=== PATIENT | female | born 1965 | race Caucasian/White ===

== ENCOUNTER 2017-10-08 07:36 | Emergency (ER) | payer OTHER ==
[~2017-10-08 07:36] MED LIST: ASPI-630 PO; BENZ1TAB5 PO; CLON1TAB3 PO; FLUO10TA PO; GABA-586 PO; NEBI5TAB2 PO; PRAV80TA2 PO; TAPE75TA3 PO
[2017-10-08 07:40] VITALS: BP 143/69
[2017-10-08] MEDS ORDERED: IPRA15SP NS (08:02)
[2017-10-08] MEDS ORDERED: FLUT12AE IH (08:02)
--- NOTE | 2017-10-08 08:02 | PHYS DOC ---
Past History Past Medical History: Anxiety, Bipolar, CAD, COPD Past Surgical History: Cholecystectomy Alcohol Use: None Drug Use: None Adult General Chief Complaint Chief Complaint: COUGH HPI HPI Patient is a 51 year old F who presents with cough and nasal congestion over the past week. Brenna feels that her symptoms are worse with activity and improved with rest. She has no other associated symptoms. She has no other exacerbating or alleviating factors. She does have a history of emphysema and uses albuterol only. Review of Systems Review of Systems Constitutional: Denies fever or chills [] Eyes: Denies change in visual acuity, redness, or eye pain [] HENT: Negative except history of present illness Respiratory: Negative except history of present illness Cardiovascular: No additional information not addressed in HPI [] GI: Denies abdominal pain, nausea, vomiting, bloody stools or diarrhea [] : Denies dysuria or hematuria [] Musculoskeletal: Denies back pain or joint pain [] Integument: Denies rash or skin lesions [] Neurologic: Denies headache, focal weakness or sensory changes [] Endocrine: Denies polyuria or polydipsia [] All other systems were reviewed and found to be within normal limits, except as documented in this note. Family History Family History No pertinent family medical history was reported Current Medications Current Medications Current medications were reviewed Allergies Allergies Allergies Coded Allergies Type Severity Reaction Last Updated Verified quetiapine Allergy Severe 04/15/16 Yes oxcarbazepine Allergy Intermediate 04/15/16 Yes Physical Exam Physical Exam Constitutional: Well developed, well nourished, no acute distress, non-toxic appearance. [] HENT: Normocephalic, atraumatic, mild nasal mucosa erythema with mild mucous Eyes: PERRLA, EOMI, conjunctiva normal, no discharge. [] Neck: Normal range of motion, no tenderness, supple, no stridor. [] Cardiovascular:Heart rate regular rhythm, Lungs & Thorax: Bilateral breath sounds clear to auscultation []mild coarse breath sounds noted with minimal wheezing Abdomen: Bowel sounds normal, soft, no tenderness, no masses, no pulsatile masses. [] Skin: Warm, dry, no erythema, no rash. [] Back: No tenderness, no CVA tenderness. [] Extremities: No tenderness, no cyanosis, no clubbing, ROM intact, no edema. [] Neurologic: Alert and oriented X 3, normal motor function, normal sensory function, no focal deficits noted. [] Psychologic: Affect normal, judgement normal, mood normal. [] Current Patient Data Vital Signs Normal vital signs please review nursing documentation for specifics EKG EKG [] Radiology/Procedures Radiology/Procedures Imaging was declined Course & Med Decision Making Course & Med Decision Making Pertinent Labs and Imaging studies reviewed. (See chart for details) [] Dragon Disclaimer Dragon Disclaimer This electronic medical record was generated, in whole or in part, using a voice recognition dictation system. Departure Departure: Impression: Primary Impression: Upper respiratory infection Additional Impression: Bronchitis Disposition: HOME, SELF-CARE Condition: STABLE Referrals: JAYMIE FAIRCHILD APRN (PCP) Patient Instructions: Acute Bronchitis Additional Instructions: Brenna was seen in the emergency department for cough and nasal congestion. No emergency medical condition was found on history or physical exam. Her symptoms are most consistent with a viral upper respiratory infection and bronchitis. She is advised to use nasal saline rinses regularly. She is also given prescriptions for nasal spray and inhaled steroid. She is advised to follow-up with her primary care doctor in the next 3-5 days for further management. Scripts Ipratropium [place] (IPRATROPIUM BROMIDE) 15 Ml [place] 15 ML NS TID for 7 Days, SPRAY Prov: ALEX STAFFORD MD 10/08/17 Fluticasone Propionate (FLOVENT 110MCG HFA) 12 Gm Aer.w.adap 2 PUFF IH BID for 7 Days, #1 INHALER 2 Refills Prov: ALEX STAFFORD MD 10/08/17 Problem Qualifiers Primary Impression: Upper respiratory infection URI type: unspecified URI Qualified Codes: J06.9 - Acute upper respiratory infection, unspecified ALEX STAFFORD MD Oct 08, 2017 08:02
== END 2017-10-08 08:10 | disposition home or self-care (01) ==
LOC: ER 07:36
DX: J06.9 Acute upper respiratory infection, unspecified (principal); J40 Bronchitis, not specified as acute or chronic; I25.10 Atherosclerotic heart disease of native coronary artery without angina pectoris; J44.9 Chronic obstructive pulmonary disease, unspecified; Z88.8 Allergy status to other drugs, medicaments and biological substances
CPT/HCPCS: 99283

== ENCOUNTER → 2018-08-07 | Outpatient (CLI) | payer OTHER ==
[~2018-08-07] MED LIST changes: -CLON1TAB3 PO; +CLON1TAB4 PO; +FLUT12AE IH; +IPRA15SP NS
[2018-08-07 08:26] LABS: ALBUMIN 3.6 g/dL (3.4-5.0); ALBUMIN/GLOBULIN RATIO 0.8 (1.0-1.7); CALCIUM 9.2 mg/dL (8.5-10.1); CREATININE 0.9 mg/dL (0.6-1.0); GFR 66.3; POTASSIUM 4.4 mmol/L (3.5-5.1); TOTAL BILIRUBIN 0.3 mg/dL (0.2-1.0)
== END | disposition home or self-care (01) ==
LOC: LAB 07:42
PROVIDERS: ATTEND Nurse Practitioner
DX: E78.49 Other hyperlipidemia (principal)
CPT/HCPCS: 36415; 80053; 80061

== ENCOUNTER → 2018-11-21 | Outpatient (CLI) | payer OTHER ==
[~2018-11-21] MED LIST changes: +CLON1TAB11 PO; -CLON1TAB4 PO
[2018-11-21 08:55] LABS: ALBUMIN 3.7 g/dL (3.4-5.0); CALCIUM 8.9 mg/dL (8.5-10.1); CREATININE 0.9 mg/dL (0.6-1.0); POTASSIUM 3.8 mmol/L (3.5-5.1); TOTAL BILIRUBIN 0.3 mg/dL (0.2-1.0); TOTAL PROTEIN 7.4 g/dL (6.4-8.2)
== END | disposition home or self-care (01) ==
LOC: LAB 07:30
PROVIDERS: ATTEND Nurse Practitioner
DX: E78.5 Hyperlipidemia, unspecified (principal)
CPT/HCPCS: 36415; 80053; 80061

== ENCOUNTER → 2019-04-20 | Outpatient (CLI) | payer OTHER ==
[2019-04-20 09:30] LABS: BASO % 1 % (0-3); EOS # 0.1 x10^3/uL (0.0-0.7); EOS % 2 % (0-3); HEMATOCRIT 41.6 % (36.0-47.0); HEMOGLOBIN 13.9 g/dL (12.0-15.5); LYMPH # 3.2 x10^3/uL (1.0-4.8); LYMPH % 38 % (24-48); MEAN CORPUSCULAR HEMOGLOBIN 34 pg (25-35); MEAN CORPUSCULAR HGB CONC 34 g/dL (31-37); MEAN CORPUSCULAR VOLUME 100 fL (79-100); MONO # 0.6 x10^3/uL (0.0-1.1); MONO % 7 % (0-9); NEUT # 4.5 x10^3uL (1.8-7.7); NEUT % 53 % (31-73); PLATELET COUNT 238 x10^3/uL (140-400); RED BLOOD COUNT 4.16 x10^6/uL (3.50-5.40); RED CELL DISTRIBUTION WIDTH 13.9 % (11.5-14.5); WHITE BLOOD COUNT 8.5 x10^3/uL (4.0-11.0)
[2019-04-20 09:48] LABS: ALBUMIN 3.7 g/dL (3.4-5.0); ALK PHOS 87 U/L (46-116); ALT (SGPT) 31 U/L (14-59); ANION GAP 9 (6-14); AST (SGOT) 22 U/L (15-37); BLOOD UREA NITROGEN 6 mg/dL (7-20); BUN/CREATININE RATIO 8 (6-20); CALCIUM 9.3 mg/dL (8.5-10.1); CARBON DIOXIDE 27 mmol/L (21-32); CHLORIDE 104 mmol/L (98-107); CREATININE 0.8 mg/dL (0.6-1.0); GFR 75.6; GLUCOSE 98 mg/dL (70-99); POTASSIUM 4.4 mmol/L (3.5-5.1); SODIUM 140 mmol/L (136-145); TOTAL BILIRUBIN 0.4 mg/dL (0.2-1.0); TOTAL PROTEIN 7.4 g/dL (6.4-8.2); VAL ACID 33 mcg/mL (50-100)
[2019-04-20 16:13] LABS: FREE T4 0.93 ng/dL (0.76-1.46); THYROID STIM HORMONE (TSH) 2.879 uIU/mL (0.358-3.740)
[2019-04-20 23:06] LABS: HEMOGLOBIN A1C 5.3 % (4.8-5.6)
== END | disposition home or self-care (01) ==
LOC: LAB 07:31
PROVIDERS: ATTEND Family Medicine
DX: Z79.899 Other long term (current) drug therapy (principal)
CPT/HCPCS: 36415; 80053; 80061; 80164; 83036; 84439; 84443; 84480; 85025

== ENCOUNTER → 2019-11-20 | Outpatient (CLI) | payer OTHER ==
--- NOTE | 2019-11-23 14:40 | RAD ---
History: Routine screening. Technique: Bilateral digital mammographic routine views were obtained with CAD - computer aided detection. Comparison: 11/18/2015. Findings: Breast Tissue Density B :The breast tissue is composed of mixed fatty and fibroglandular tissue. There are no suspicious masses, microcalcifications or areas of architectural distortion. Impression: Negative mammogram. BI-RADS Category 1: Negative. Normal interval followup. A mammogram does not have 100% sensitivity and therefore a negative imaging study should not delay further work up of a suspicious abnormality. The patient will receive a letter with the results in the mail. Patient information is entered into the reminder system with a target due date for the next screening mammogram. The patient will receive a reminder. "Our facility is accredited by the [employer] Mammography Program." BI-RADS 1 -- negative findings (within normal)
== END | disposition home or self-care (01) ==
LOC: MAMMO 14:54
PROVIDERS: ATTEND Physician Assistant Medical
DX: Z12.31 Encounter for screening mammogram for malignant neoplasm of breast (principal)
CPT/HCPCS: 77067

== ENCOUNTER → 2019-12-17 | Outpatient (CLI) | payer OTHER ==
--- NOTE | 2019-12-17 08:55 | RAD ---
KNEE RIGHT 2V, KNEE STANDING BILAT AP Clinical Indication: Knee pain Comparison: Left knee July 10, 2013. Findings: AP bilateral standing. Lateral and sunrise views of the right knee. There is moderate 2 severe narrowing of the left medial compartment. The narrowing has increased from prior study. There are marginal osteophytes in the medial and lateral compartments. There is right knee arthroplasty. No radiographic evidence of loosening. No acute fracture is identified. The patella is in anatomic position. There is no obvious right joint effusion. No soft tissue swelling is identified. IMPRESSION: 1. Moderate arthropathy of the left knee medial compartment. 2. Right knee arthroplasty. No radiographic evidence of loosening. Electronically signed by: Trevon Spivey MD (12/17/2019 8:52 AM) [id number]
--- NOTE | 2019-12-17 09:52 | RAD ---
Right lower extremity venous duplex study 12/17/2019 9:45 AM Clinical History: History of recent surgery. Right lower extremity swelling. Patient currently on anticoagulation. Technique: Using a combination of real time ultrasound imaging and color-flow and pulse Doppler imaging techniques, including spectral analysis, graded compression and augmentation, duplex evaluation of the deep venous system of the right lower extremity was performed. Multiple images were obtained. Findings: There is occlusive thrombus within the posterior tibial veins. Visualization is somewhat limited. Common femoral vein, superficial vein, popliteal vein, and saphenous vein are patent. Impression: Exam positive for venous thrombosis involving the right peroneal veins. Findings called to the referring provider at 9:45 AM 12/17/2019 Electronically signed by: Obey Farris MD (12/17/2019 9:49 AM) [id number]
== END | disposition home or self-care (01) ==
LOC: DXRAD 07:54
PROVIDERS: ATTEND Physician Assistant
DX: M25.862 Other specified joint disorders, left knee (principal); M25.762 Osteophyte, left knee; I82.462 Acute embolism and thrombosis of left calf muscular vein; Z96.653 Presence of artificial knee joint, bilateral
CPT/HCPCS: 73560; 73565; 93971

== ENCOUNTER → 2019-12-22 | Outpatient (CLI) | payer OTHER ==
[2019-12-22 11:13] LABS: BASO # 0.1 x10^3/uL (0.0-0.2); BASO % 1 % (0-3); EOS # 0.2 x10^3/uL (0.0-0.7); EOS % 2 % (0-3); HEMOGLOBIN 12.8 g/dL (12.0-15.5); LYMPH % 31 % (24-48); MEAN CORPUSCULAR HEMOGLOBIN 34 pg (25-35); MEAN CORPUSCULAR HGB CONC 34 g/dL (31-37); MEAN CORPUSCULAR VOLUME 100 fL (79-100); MONO # 0.9 x10^3/uL (0.0-1.1); MONO % 9 % (0-9); NEUT # 5.8 x10^3uL (1.8-7.7); NEUT % 58 % (31-73); PLATELET COUNT 361 x10^3/uL (140-400); RED BLOOD COUNT 3.81 x10^6/uL (3.50-5.40); RED CELL DISTRIBUTION WIDTH 14.1 % (11.5-14.5)
[2019-12-22 11:32] LABS: CALCIUM 9.5 mg/dL (8.5-10.1); CREATININE 0.9 mg/dL (0.6-1.0); GFR 65.8; POTASSIUM 3.9 mmol/L (3.5-5.1)
[2019-12-22 12:40] LABS: SEDIMENTATION RATE 66 (0-25)
== END ==
LOC: LAB 10:09
PROVIDERS: ATTEND Physician Assistant Medical
DX: L03.90 Cellulitis, unspecified (principal)
CPT/HCPCS: 36415; 80048; 85025; 85651

== ENCOUNTER → 2020-04-21 | Outpatient (CLI) | payer OTHER ==
[2020-04-21 09:04] LABS: ALBUMIN 3.5 g/dL (3.4-5.0); ALBUMIN/GLOBULIN RATIO 0.9 (1.0-1.7); ALK PHOS 75 U/L (46-116); ALT (SGPT) 13 U/L (14-59); ANION GAP 6 (6-14); AST (SGOT) 12 U/L (15-37); BASO # 0.1 x10^3/uL (0.0-0.2); BASO % 1 % (0-3); BLOOD UREA NITROGEN 14 mg/dL (7-20); BUN/CREATININE RATIO 14 (6-20); CARBON DIOXIDE 31 mmol/L (21-32); CHLORIDE 102 mmol/L (98-107); EOS # 0.1 x10^3/uL (0.0-0.7); EOS % 2 % (0-3); GFR 58.2; GLUCOSE 85 mg/dL (70-99); HEMATOCRIT 41.1 % (36.0-47.0); HEMOGLOBIN 14.1 g/dL (12.0-15.5); LYMPH # 2.6 x10^3/uL (1.0-4.8); LYMPH % 45 % (24-48); MEAN CORPUSCULAR HEMOGLOBIN 34 pg (25-35); MEAN CORPUSCULAR HGB CONC 34 g/dL (31-37); MEAN CORPUSCULAR VOLUME 98 fL (79-100); MONO # 0.4 x10^3/uL (0.0-1.1); MONO % 7 % (0-9); NEUT # 2.6 x10^3uL (1.8-7.7); NEUT % 46 % (31-73); PLATELET COUNT 202 x10^3/uL (140-400); POTASSIUM 4.4 mmol/L (3.5-5.1); RED BLOOD COUNT 4.19 x10^6/uL (3.50-5.40); RED CELL DISTRIBUTION WIDTH 15.2 % (11.5-14.5); SODIUM 139 mmol/L (136-145); TOTAL BILIRUBIN 0.4 mg/dL (0.2-1.0); TOTAL PROTEIN 7.3 g/dL (6.4-8.2); WHITE BLOOD COUNT 5.8 x10^3/uL (4.0-11.0)
[2020-04-21 09:13] LABS: VAL ACID 79 mcg/mL (50-100)
[2020-04-21 13:04] LABS: FREE T4 0.83 ng/dL (0.76-1.46); THYROID STIM HORMONE (TSH) 1.704 uIU/mL (0.358-3.740)
[2020-04-22 01:06] LABS: HEMOGLOBIN A1C 5.2 % (4.8-5.6)
== END ==
LOC: LAB 07:58
PROVIDERS: ATTEND Nurse Practitioner Family
DX: Z79.899 Other long term (current) drug therapy (principal)
CPT/HCPCS: 36415; 80053; 80061; 80164; 82140; 83036; 84439; 84443; 84480; 85025

== ENCOUNTER → 2021-02-26 | Outpatient (CLI) | payer OTHER ==
--- NOTE | 2021-02-26 16:00 | RAD ---
EXAM: Bilateral knees, 2 views. HISTORY: Pain. COMPARISON: None. FINDINGS: 2 views of both knees are obtained. There is a right knee arthroplasty in expected position . There is no evidence of arthroplasty loosening or fracture. There is no right knee effusion. There is moderate medial compartment joint space narrowing and mild medial compartment narrowing of the lef t knee. There is no left knee effusion. IMPRESSION: 1. Right knee arthroplasty in expected position. 2. Moderate medial compartment osteoarthritis of the left knee. Electronically signed by: Destiny Self MD (02/26/2021 3:58 PM) [id number]
== END ==
LOC: RAD 13:33
PROVIDERS: ATTEND Orthopaedic Surgery
DX: M17.12 Unilateral primary osteoarthritis, left knee (principal); Z96.651 Presence of right artificial knee joint
CPT/HCPCS: 73562

== ENCOUNTER → 2021-04-01 | Outpatient (CLI) | payer OTHER ==
[2021-04-01 09:10] LABS: BASO % 1 % (0-3); EOS # 0.1 x10^3/uL (0.0-0.7); EOS % 2 % (0-3); HEMATOCRIT 42.5 % (36.0-47.0); HEMOGLOBIN 14.7 g/dL (12.0-15.5); LYMPH # 2.5 x10^3/uL (1.0-4.8); LYMPH % 41 % (24-48); MEAN CORPUSCULAR HEMOGLOBIN 34 pg (25-35); MEAN CORPUSCULAR HGB CONC 35 g/dL (31-37); MEAN CORPUSCULAR VOLUME 97 fL (79-100); MONO # 0.5 x10^3/uL (0.0-1.1); MONO % 9 % (0-9); NEUT % 48 % (31-73); PLATELET COUNT 232 x10^3/uL (140-400); RED BLOOD COUNT 4.36 x10^6/uL (3.50-5.40); RED CELL DISTRIBUTION WIDTH 14.3 % (11.5-14.5); WHITE BLOOD COUNT 6.2 x10^3/uL (4.0-11.0)
[2021-04-01 09:14] LABS: ALBUMIN 3.9 g/dL (3.4-5.0); ALBUMIN/GLOBULIN RATIO 1.1 (1.0-1.7); ALK PHOS 82 U/L (46-116); ALT (SGPT) 19 U/L (14-59); ANION GAP 9 (6-14); AST (SGOT) 16 U/L (15-37); BLOOD UREA NITROGEN 13 mg/dL (7-20); BUN/CREATININE RATIO 14 (6-20); CARBON DIOXIDE 30 mmol/L (21-32); CHLORIDE 105 mmol/L (98-107); CREATININE 0.9 mg/dL (0.6-1.0); GFR 65.5; GLUCOSE 86 mg/dL (70-99); POTASSIUM 4.3 mmol/L (3.5-5.1); SODIUM 144 mmol/L (136-145); TOTAL BILIRUBIN 0.3 mg/dL (0.2-1.0); TOTAL PROTEIN 7.5 g/dL (6.4-8.2)
[2021-04-01 09:15] LABS: VAL ACID 57 mcg/mL (50-100)
[2021-04-01 15:52] LABS: FREE T4 0.77 ng/dL (0.76-1.46); THYROID STIM HORMONE (TSH) 2.019 uIU/mL (0.358-3.740)
[2021-04-01 22:09] LABS: HEMOGLOBIN A1C 5.4 % (4.8-5.6)
== END ==
LOC: LAB 08:07
PROVIDERS: ATTEND Nurse Practitioner Family
DX: Z79.899 Other long term (current) drug therapy (principal)
CPT/HCPCS: 36415; 80053; 80061; 80164; 83036; 84439; 84443; 84480; 85025

== ENCOUNTER → 2021-04-01 | Outpatient (CLI) | payer OTHER ==
[2021-04-01 11:45] LABS: ALBUMIN 3.9 g/dL (3.4-5.0); ALBUMIN/GLOBULIN RATIO 1.1 (1.0-1.7); CALCIUM 8.8 mg/dL (8.5-10.1); POTASSIUM 4.2 mmol/L (3.5-5.1); TOTAL BILIRUBIN 0.3 mg/dL (0.2-1.0); TOTAL PROTEIN 7.5 g/dL (6.4-8.2)
== END ==
LOC: LAB 08:01
PROVIDERS: ATTEND Nurse Practitioner
DX: E78.5 Hyperlipidemia, unspecified (principal)
CPT/HCPCS: 36415; 80053; 80061

== ENCOUNTER → 2021-09-09 | Outpatient (CLI) | payer OTHER | LOC: LAB 08:40 | PROVIDERS: ATTEND Orthopaedic Surgery Sports Medicine | DX: E66.01 Morbid (severe) obesity due to excess calories (principal); M17.12 Unilateral primary osteoarthritis, left knee; Z96.651 Presence of right artificial knee joint; Z68.41 Body mass index [BMI] 40.0-44.9, adult | CPT/HCPCS: 36415; 85651; 86140 ==

== ENCOUNTER 2022-02-01 10:31 | Emergency (ER) | payer OTHER ==
[~2022-02-01] VITALS: Ht 170.2 cm; Wt 126.0 kg
[2022-02-01] MEDS ORDERED: CONTRAST GIVEN. MC PRN (11:15)
[2022-02-01] MEDS ORDERED: IOHEXOL 350 MG/ML 100 ML VIAL. IV ONE (11:15)
--- NOTE | 2022-02-01 11:45 | PHYS DOC ---
Past History Past Medical History: Bipolar, Depression, High Cholesterol, Hypertension Additional Past Medical Histor: aoritc valve, empysema Past Surgical History: Knee Replacement, Other Additional Smoking Information: 1/2 pack a day smoker for 20+ years Alcohol Use: None Drug Use: None General Adult EDM: Chief Complaint: COUGH HPI: HPI: Patient is a 56-year-old female coming down from urgent care for low oxygen saturation. Patient had gone in because she had had a cough that was not going away. Patient states last week she was exposed to her daughter who had respiratory symptoms and developed sore throat and cough. Patient states the cough is not getting any better. Has a history of COPD and smokes a pack of cigarettes per day. Denies any use of home oxygen. Review of Systems: Review of Systems: All other systems within normal limits except for as noted in the HPI Current Medications: Current Meds: Current Medications Medications (Trade) Dose Ordered Sig/Dov Start Time Stop Time Status Last Admin Dose Admin Info (Do NOT chart on this entry -- for MONITORING) 1 each PRN DAILY PRN 02/01/22 11:15 02/03/22 11:14 Iohexol (Omnipaque 350 Mg/ml) 100 ml 1X ONCE 02/01/22 11:15 02/01/22 11:16 DC 02/01/22 11:38 100 ML Allergies: Allergies: Allergies Coded Allergies Type Severity Reaction Last Updated Verified quetiapine Allergy Severe Unknown 02/01/22 No oxcarbazepine Allergy Intermediate Unknown 01/28/20 Yes Physical Exam: PE: Constitutional: Well developed, well nourished, no acute distress, non-toxic appearance. [] HENT: Normocephalic, atraumatic, bilateral external ears normal, nose normal. [] Eyes: PERRLA, conjunctiva normal, no discharge. [] Neck: No rigidity, supple, no stridor. [] Cardiovascular: Regular rate and rhythm, brisk cap refill [] Lungs & Thorax: Non labored symmetric respirations, no tachypnea or respiratory distress. Scattered bilateral wheezes and rhonchi [] Abdomen: Soft, nondistended. Skin: Warm, dry, no erythema, no rash. [] Back: Unremarkable Extremities: No deformities, range of motion grossly intact, no lower extremity edema [] Neurologic: Alert and oriented X 3, no focal deficits noted. [] Psychologic: Affect normal, judgement normal, mood normal. [] Current Patient Data: Vital Signs: Vital Signs Date Time Temp Pulse Resp B/P (MAP) Pulse Ox O2 Delivery O2 Flow Rate FiO2 02/01/22 10:46 98.2 92 24 166/93 (117) 97 Room Air EKG: EKG: Sinus rhythm, heart rate 98, normal axis, no STEMI [] Radiology/Procedures: Radiology/Procedures: [address] [address] IMAGING REPORT Signed PATIENT: ENEDINA HANSON ACCOUNT: [id number] : 1965 LOCATION: ER AGE: 56 SEX: F EXAM STATUS: REG ER ORD. PHYSICIAN: TY KILPATRICK MD REASON: hypoxia, left chest pain PROCEDURE: CT ANGIOGRAPHY CHEST EXAMINATION: CTA chest. Technique: Axial images with coronal and sagittal reconstructions with MIP technique are performed of chest with angiogram protocol. 100 mL of Isovue-370 administered intravenously. One or more of the following radiation dose reduction techniques was used: automated exposure control, adjustment of mA and/or KV according to patient size, and/or utilization of iterative reconstruction technique. HISTORY: 56 years Female Reason: hypoxia, left chest pain. COMPARISON: Report from April 14, 2016. FINDINGS: The pulmonary arteries are well-opacified with no filling defects to suggest pulmonary embolism. The thoracic aorta is normal in caliber. There is a no dissection. The heart size is normal. There is no pericardial effusion. No pleural effusion. No significantly enlarged mediastinal lymph nodes seen. There is borderline minimally enlarged right hilar lymph node measuring 1.4 cm noted of questionable significance. No axillary lymphadenopathy. The lungs demonstrate no significant consolidation. There are from upper lobe blebs and bullae seen. No lung mass or suspicious nodule. The calcification in the left thyroid lobe is noted with probable associated largely obscured nodules seen. The osseous structures appear grossly unremarkable. Sections in the upper from abdomen demonstrate cholecystectomy clips. IMPRESSION: 1. No PE or aortic dissection. 2. Mild upper lobe emphysema changes. Electronically signed by: Brennan Corral MD (02/01/2022 12:14 PM) [id number] DICTATED AND SIGNED BY: BRENNAN CORRAL MD DATE: 02/01/22 1159 CC: TY KILPATRICK MD; KIEL GONSALES MD ~ [] Heart Score: C/O Chest Pain: N/A Risk Factors: Risk Factors: DM, Current or recent (<one month) smoker, HTN, HLP, family history of CAD, obesity. Risk Scores: Score 0 - 3: 2.5% MACE over next 6 weeks - Discharge Home Score 4 - 6: 20.3% MACE over next 6 weeks - Admit for Clinical Observation Score 7 - 10: 72.7% MACE over next 6 weeks - Early Invasive Strategies Course & Med Decision Making: Course & Med Decision Making Pertinent Labs and Imaging studies reviewed. (See chart for details) Patient maintaining oxygen saturation even with walking. She also states she is feeling better after the DuoNeb. States she has a nebulizer at home but does not have any of the DuoNeb fluid. [] Dragon Disclaimer: Dragon Disclaimer: This electronic medical record was generated, in whole or in part, using a voice recognition dictation system. Departure Departure: Impression: Primary Impression: COPD exacerbation Additional Impression: Bronchitis Disposition: HOME / SELF CARE / HOMELESS Condition: STABLE Referrals: KIEL GONSALES MD (PCP) Patient Instructions: Chronic Obstructive Pulmonary Disease Exacerbation Scripts Amoxicillin/Potassium Clav (AUGMENTIN 875-125 TABLET) 1 Each Tablet 1 TAB PO BID for antibiotic for 7 Days, #14 TAB 0 Refills Prov: TY KILPATRICK MD 02/01/22 Prednisone (PREDNISONE) 50 Mg Tablet 1 TAB PO DAILY for steroid, #4 TAB You received this medication in the emergency room today. You will starting your next dose tomorrow. Prov: TY KILPATRICK MD 02/01/22 Ipratropium/Albuterol Sulfate (DUONEB 0.5-3(2.5) MG/3 ML) 3 Ml [place]mpul.neb 3 ML NEB QID PRN for WHEEZING, #30 EACH Prov: TY KILPATRICK MD 02/01/22 TY KILPATRICK MD February 01, 2022 11:45
--- NOTE | 2022-02-01 12:16 | RAD ---
EXAMINATION: CTA chest. Technique: Axial images with coronal and sagittal reconstructions with MIP technique are performed of chest with angiogram protocol. 100 mL of Isovue-370 administered intravenously. One or more of the following radiation dose reduction techniques was used: automated exposure control , adjustment of mA and/or KV according to patient size, and/or utilization of iterative reconstructio n technique. HISTORY: 56 years Female Reason: hypoxia, left chest pain. COMPARISON: Report from April 14, 2016. FINDINGS: The pulmonary arteries are well-opacified with no filling defects to suggest pulmonary embolism. The thoracic aorta is normal in caliber. There is a no dissection. The heart size is normal. There is no pericardial effusion. No pleural effusion. No significantly enlarged mediastinal lymph nodes seen. There is borderline minimally enlarged right hilar lymph node measuring 1.4 cm noted of questionable significance. No axillary lymphadenopathy. The lungs demonstrate no significant consolidation. There are from upper lobe blebs and bullae seen. No lung mass or suspicious nodule. The calcification in the left thyroid lobe is noted with probable associated largely obscured nodules seen. The osseous structures appear grossly unremarkable. Sections in the upper from abdomen demonstrate ch olecystectomy clips. IMPRESSION: 1. No PE or aortic dissection. 2. Mild upper lobe emphysema changes. Electronically signed by: Usama Corral MD (02/01/2022 12:14 PM) [id number]
[2022-02-01 12:17] LABS: BASO % 1 % (0-3); EOS # 0.1 x10^3/uL (0.0-0.7); EOS % 2 % (0-3); HEMATOCRIT 40.1 % (36.0-47.0); HEMOGLOBIN 13.8 g/dL (12.0-15.5); LYMPH # 1.8 x10^3/uL (1.0-4.8); LYMPH % 22 % (24-48); MEAN CORPUSCULAR HEMOGLOBIN 33 pg (25-35); MEAN CORPUSCULAR HGB CONC 34 g/dL (31-37); MEAN CORPUSCULAR VOLUME 97 fL (79-100); MONO % 13 % (0-9); NEUT % 62 % (31-73); PLATELET COUNT 206 x10^3/uL (140-400); RED BLOOD COUNT 4.16 x10^6/uL (3.50-5.40); RED CELL DISTRIBUTION WIDTH 14.3 % (11.5-14.5)
[2022-02-01 12:29] LABS: INFLUENZA A PATIENT NEGATIVE (NEGATIVE); INFLUENZA B PATIENT NEGATIVE (NEGATIVE)
[2022-02-01 12:30] LABS: CALCIUM 8.9 mg/dL (8.5-10.1); CREATININE 0.9 mg/dL (0.6-1.0); GFR 65.2; POTASSIUM 4.7 mmol/L (3.5-5.1)
[2022-02-01] MEDS ORDERED: IPRATRPIUM/ALBUTEROL 0.5/2.5MG 3 ML NEBU. NEB ONE ×2 (12:30)
[2022-02-01 12:42] LABS: ALBUMIN 3.4 g/dL (3.4-5.0); MAGNESIUM 1.8 mg/dL (1.8-2.4); PHOSPHORUS 4.7 mg/dL (2.6-4.7); TOTAL BILIRUBIN 0.3 mg/dL (0.2-1.0); TOTAL PROTEIN 6.7 g/dL (6.4-8.2)
[2022-02-01] MEDS ORDERED: methylPREDNISolone SOD SUCC PF 125 MG/2 ML VIAL. IV ONE (12:45)
[2022-02-01 13:10] LABS: BACTERIA,URINE 0 /HPF (0-FEW); CLARITY,URINE CLEAR; COLOR,URINE YELLOW; GLUCOSE,URINE NEG (NEG); NITRITE,URINE NEG (NEG); SQUAMOUS EPITHELIAL CELL,UR MOD /LPF; UROBILINOGEN,URINE 0.2 mg/dL (0.2 mg/dL); WBC,URINE 0 /HPF (0-4)
[2022-02-01 13:26] VITALS: BP 166/92
[2022-02-01] MEDS ORDERED: PRED50TA PO (13:49)
[2022-02-01] MEDS ORDERED: IPRA3AMP29 NEB (13:49)
[2022-02-01] MEDS ORDERED: AMOX1TAB61 PO (13:49)
--- NOTE | 2022-02-01 23:28 | EKG ---
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
== END 2022-02-01 14:11 | disposition home or self-care (01) ==
LOC: ER 10:31
DX: J44.1 Chronic obstructive pulmonary disease with (acute) exacerbation (principal); F31.9 Bipolar disorder, unspecified; E78.00 Pure hypercholesterolemia, unspecified; I10 Essential (primary) hypertension; F17.200 Nicotine dependence, unspecified, uncomplicated; Z20.822 Contact with and (suspected) exposure to COVID-19; Z88.8 Allergy status to other drugs, medicaments and biological substances
CPT/HCPCS: 71275; 80053; 81001; 82803; 83735; 83880; 84100; 85025; 85379; 87428; 93005; 94640; 96374; 99285; C9803; J2930; Q9967; U0003

== ENCOUNTER → 2022-02-10 | Outpatient (CLI) | payer OTHER ==
[2022-02-01 13:26] VITALS: BP 166/92
[~2022-02-10] MED LIST changes: +AMOX1TAB61 PO; +IPRA3AMP29 NEB; +PRED50TA PO
--- NOTE | 2022-02-10 16:13 | RAD ---
XR CHEST 2V History: Hypertension. Wet cough. Comparison: None. Technique: PA and lateral chest radiographs. Findings: The lungs are adequately and symmectrically inflated. No airspace consolidation, pleural effusion or pneumothorax. The cardiomediastinal silhoutte and pulmonary vasculature are within normal limits. End plate osteophytes in the thoracic spine. Right upper quadrant cholecystectomy clips. Impression: 1. No acute cardiopulmonary process. Electronically signed by: Go Garber MD (02/10/2022 4:10 PM) [id number]
== END ==
LOC: RAD 10:27
PROVIDERS: ATTEND Physician Assistant
DX: I10 Essential (primary) hypertension (principal); R06.00 Dyspnea, unspecified; R79.89 Other specified abnormal findings of blood chemistry; M25.78 Osteophyte, vertebrae; Z90.49 Acquired absence of other specified parts of digestive tract
CPT/HCPCS: 71046